=== PATIENT | male | born 1975 | race Caucasian/White ===

== ENCOUNTER 2018-01-09 08:08 | Day surgery (SDC) | payer OTHER ==
[2018-01-09] VITALS (10 sets, daily range): BP systolic 107–129; BP diastolic 68–80
[~2018-01-09] VITALS: Ht 182.9 cm; Wt 95.7 kg
--- NOTE | 2018-01-09 06:57 | Pre-Procedure Note/Attestation ---
Pre-Procedure Note/Attestation Complete Prior to Procedure Planned Procedure: left Procedure Narrative: left hip core decompression with injection of bone marrow aspirate and possible bone graft Indications for Procedure Pre-Operative Diagnosis: left hip avn Attestation I attest that I discussed the nature of the procedure; its benefits; risks and complications; and alternatives (and the risks and benefits of such alternatives ), prior to the procedure, with the patient (or the patient's legal airline security representative). I attest that, if there was a reasonable possibility of needing a blood transfusion, the patient (or the patient's legal airline security representative) was given the [facility] standardized written summary, pursuant to the [place] Blood Safety Act ([place] Health and Safety Code # 1645, as amended). I attest that I re-evaluated the patient just prior to the surgery and that there has been no change in the patient's H&P, except as documented below: none Anthony Zaldivar MD Jan 09, 2018 06:57
[~2018-01-09 08:08] MED LIST: ceFAZolin 1gm in D5W 55ml IVP ONE; celeBREX 200mg Cap **SURGERY PATIENTS ONLY ORAL ONE; oxyCONTIN 20mg tab ORAL ONE; triumeq PO
[2018-01-09] MEDS ORDERED: Zemuron 50mg/5ml Inj IV ONE (08:46)
[2018-01-09] MEDS ORDERED: Lidocaine 1% MPF 10mg/ml 5ml ONE (08:51)
[2018-01-09] MEDS ORDERED: Propofol 200mg/20ml IV ONE (08:51)
[2018-01-09] MEDS ORDERED: Sterile Water Irrig 1000ml IRRIG ONE (09:00)
[2018-01-09] MEDS ORDERED: NS Irrig 1000ml ONE (09:00)
[2018-01-09] MEDS ORDERED: LR 1000ml ONE (09:00)
--- NOTE | 2018-01-09 09:10 | Anethesia Preoperative Eval ---
Anesthesia Pre-op PMH/ROS General Date of Evaluation: Jan 09, 2018 Time of Evaluation: 08:45 Anesthesiologist: ASA Score: ASA 3 Mallampati Score Class I : Soft palate, uvula, fauces, pillars visible Class II: Soft palate, uvula, fauces visible Class III: Soft palate, base of uvula visible Class IV: Only hard plate visible Mallampati Classification: Class II Surgeon: HERIBERTO Diagnosis: ASEPTIC NECROSIS LEFT FEMUR Surgical Procedure: LEFT HIP CORE DECOMPRESSION W/ INJECTION BONE MARROW ASPIRATION Anesthesia History: none Family History: no anesthesia problems Allergies: Coded Allergies: IODINE (Verified Adverse Reaction, Intermediate, vomiting, 01/08/18) Medications: see eMAR Past Medical History Cardiovascular: Denies: HTN, CAD, [place], valve dz, arrhythmia, other Pulmonary: Reports: DICK, other - H/O BRONCHITIS; Denies: asthma, COPD Gastrointestinal/Genitourinary: Denies: GERD, CRI, ESRD, other Neurologic/Psychiatric: Reports: depression/anxiety; Denies: dementia, CVA, TIA, other Endocrine: Denies: DM, hypothyroidism, steroids, other HEENT: Denies: cataract (L), cataract (R), glaucoma, [place] (L), [place] (R), other Hematology/Immune: Reports: other - HIV Musculoskeletal/Integumentary: Reports: other - ASEPTIC NECROSIS LEFT HIP; Denies: OA, RA, DJD, DDD, edema PSxH Narrative: TONSILLECTOMY, APPENDECTOMY Anesthesia Pre-op Phys. Exam Physician Exam Last Vital Signs Date Time Temp Pulse Resp B/P (MAP) Pulse Ox O2 Delivery O2 Flow Rate FiO2 01/09/18 08:50 Room Air 01/09/18 08:49 98.2 61 20 125/76 (92) 98 98.2 Constitutional: NAD Cardiovascular: RRR Respiratory: CTA Gastrointestinal: S/NT/ND Airway Exam Mallampati Score: Class III MO: full ROM: full Teeth: other Anesthesia Pre-op A/P Risk Assessment & Plan Assessment: ASA 3 Plan: ETGA Pre-Antibiotics Drug: ancef 2 grams Given Within 1 Hr of Incision: Yes Time Given: 09:45 Lety Villeda M.D. Jan 09, 2018 09:10
[2018-01-09] MEDS ORDERED: fentaNYL 100 mcg/2 mL IV ONE ×2 (09:11→11:55)
[2018-01-09] MEDS ORDERED: Bupivacaine 0.5% Inj 30 ml vial INJ ONE (09:12)
[2018-01-09] MEDS ORDERED: NeoSporin Gu Irrig 1ml Amp IRRIG ONE (09:13)
[2018-01-09] MEDS ORDERED: Bacitracin 50000 Units Vial ONE (09:13)
[2018-01-09] MEDS ORDERED: Dexamethasone 4mg/ml vial ONE (09:54)
[2018-01-09] MEDS ORDERED: Thrombin 5000 units TOPIC ONE (10:10)
--- NOTE | 2018-01-09 10:13 | Immediate Post-Op Evaluation ---
Immediate Post-Op Evalulation Immediate Post-Op Evalulation Procedure: left hip core decompression and injection of bone marrow aspiration Date of Evaluation: Jan 09, 2018 Time of Evaluation: 11:55 IV Fluids: 1500ml Blood Products: 0 Estimated Blood Loss: 100ml Urinary Output: 0 Blood Pressure Systolic: 110 Blood Pressure Diastolic: 72 Pulse Rate: 51 Respiratory Rate: 19 O2 Sat by Pulse Oximetry: 100 Temperature (Fahrenheit): 97.6 Pain Score (1-10): 0 Nausea: No Vomiting: No Complications none Patient Status: awake, patent, none Hydration Status: adequate Drug: ancef 2 grams Given Within 1 Hr of Incision: Yes Time Given: 09:45 Lety Villeda M.D. Jan 09, 2018 10:13
[2018-01-09] MEDS ORDERED: Thrombin 5000 units spray kit TOPIC ONE (10:42)
[2018-01-09] MEDS ORDERED: Gelfoam Absorbable 1gm powder pkt TOPIC ONE (10:42)
[2018-01-09] MEDS ORDERED: Calcium Chloride 100mg/ml Vial IVP ONE (11:15)
--- NOTE | 2018-01-09 11:48 | Brief Operative Note ---
Immediate Post Operative Note Operative Note Chief Complaint: left hip pain Pre-op Diagnosis: left hip avn Procedure: left hip core decompression with bone marrow aspirate Post-op Diagnosis: same as pre-op Findings: consistent w/pre-op dx studies Surgeon: md gab Administrative Hearing Officer: arian johnson Anesthesiologist: md jayme Anesthesia: general Specimen: none Complications: none Condition: stable Fluids: ns Estimated Blood Loss: minimal Drains: none Implant(s) used?: No Rose Johnson Jan 09, 2018 11:48
[2018-01-09] MEDS ORDERED: Ketorolac 30mg Inj ONE (11:55)
[2018-01-09] MEDS ORDERED: LR 1000ml 1,000 ML IVLG SCH (12:23)
[2018-01-09] MEDS: Hydromorphone 0.5mg/0.5ml inj IVP PRN ×2 (12:27→13:03)
--- NOTE | 2018-01-09 12:27 | 48 Hour Post Anesthesia Eval ---
Post Anesthesia Evaluation Procedure: left hip core decompression and injection of bone marrow aspiration Date of Evaluation: Jan 09, 2018 Time of Evaluation: 12:25 Blood Pressure Systolic: 118 0: 69 Pulse Rate: 68 Respiratory Rate: 20 Temperature (Fahrenheit): 97.6 O2 Sat by Pulse Oximetry: 99 Airway: patent Nausea: No Vomiting: No Pain Intensity: 5 Hydration Status: adequate Mental Status/LOC: patient returned to baseline Post-Anesthesia Complications: none Follow-up care needed: ready to discharge Lety Villeda M.D. Jan 09, 2018 12:27
[2018-01-09] MEDS ORDERED: Labetalol 5mg/ml 20ml vial IV PRN (12:30)
[2018-01-09] MEDS ORDERED: Midazolam 2mg/2ml Inj IVP PRN (12:30)
[2018-01-09] MEDS ORDERED: DiphenhydrAMINE 50mg/ml Inj IVP PRN (12:30)
[2018-01-09] MEDS ORDERED: fentaNYL 100 mcg/2 mL IV PRN (12:30)
--- NOTE | 2018-01-09 15:11 | Diagnostic Imaging Report ---
Indication: Pain Technique: Intraoperative fluoroscopic images from left hip injection. Operating surgeon: Kayley Total fluoroscopy time: 55.5 seconds Total fluoroscopy dose: 22.98 mGy. Comparison: None Findings: 3 intraoperative fluoroscopic images of the left hip were submitted for archival the PACS. There is no appreciable fracture or dislocation. There is reported left hip injection. Impression: Intraoperative fluoroscopic images. Please see operative report.
[2018-01-09] MEDS ORDERED: Norco 5mg/325mg tab ORAL PRN (18:15)
[2018-01-09] MEDS ORDERED: Morphine Sulfate 2mg/ml Inj IVP PRN (18:15)
[2018-01-09] MEDS ORDERED: Tylenol #3 tab (300mg/30mg) ORAL PRN (18:15)
[2018-01-09] MEDS ORDERED: D5 1/2NS 1,000 ML IV SCH (18:15)
--- NOTE | 2018-01-09 23:30 | Operative Note - Dictated ---
DATE OF OPERATION: 01/09/2018 PREOPERATIVE DIAGNOSIS: Left hip avascular necrosis, Ficat stage II. POSTOPERATIVE DIAGNOSIS: Left hip avascular necrosis, Ficat stage II. PROCEDURE: 1. Left hip core decompression with a 6 mm drill with single entry on the lateral cortex of the femur and 3 areas of decompression, a chondral bone anterosuperiorly and the midportion of the femur on AP and midportion on the lateral. 2. 60 mL aspiration of bone marrow aspirate spun down to 7 mL mixed in with 10 mL of demineralized bone graft mixed in and impacted and bone grafted in the area of the decompression SURGEON: Anthony Zaldivar M.D. DIRECTOR OF PSYCHIATRY: Rose Mullins PA-C. ANESTHESIA: General LMA anesthesia. ESTIMATED BLOOD LOSS: Less than 20 mL. COMPLICATIONS: None. BRIEF HISTORY: The patient is a pleasant 42-year-old gentleman who has had ongoing left hip pain. He presented to my office and an MRI confirmed bilateral hip avascular necrosis, but left side was painful. After full discussion of the risks and benefits of the surgery and complications associated with it including infection, bleeding, neurovascular complication, possibility of continued advancement of the hip avascular necrosis, possible collapse down the line and need for total hip arthroplasty and other complications including pain at the area of the bone marrow aspirate and other complications that may arise including infection and neurovascular complication, he opted for surgical treatment as described above. OPERATIVE PROCEDURE: The patient was brought to the operating table and was placed supine, all pressure points were well padded, and the patient was placed on a fracture table. The left hip and left pelvic area was prepped and draped in usual sterile fashion. Then, the area of the ASIS was identified and a small incision was made approximately 2.5 cm proximal to that. The pelvic area was then palpated and the Medial and lateral plates were palpated and a Jamshidi needle was inserted initially with the sharp end for about 1 to 2 cm. Subsequently, the Jamshidi needle was changed from sharp to dull and this was advanced between the 2 endplates by about 3 cm. At this point, the sequential advancement and aspiration of 5 mL of bone marrow aspirate was then performed on the high suction to obtain bone marrow aspirate and mesenchymal cells. Once this was completed, 60 mL of aspirate was obtained. This was passed off in a sterile container and was spun in centrifuge at 3200 rpm for 15 minutes, and the bone marrow mesenchymal layer was then aspirated and total of 7 mL was obtained. The hip joint was then identified. The image intensifier was brought in and on AP and lateral, the position of the hip joint was checked and rechecked. At this point, a small guidewire was placed proximal just inferior to the greater trochanter and was advanced into the neck, into the head in its superior portion on the AP and central portion on the lateral. A 6 mm cord decompression was performed in that area initially all the way down to subchondral bone. Subsequently, the guidewire was then moved into a central position on AP and a central position on lateral, and a 6 mm decompression was performed there in that place. Subsequently, this was moved slightly more inferiorly in a central position on lateral and 6 mm decompression was repeated. This provided excellent decompression of the avascular bone. Hard bone was encountered each time the guidewire was placed into that area. Once this was completed, care was given to the bone marrow aspirate. The bone marrow aspirate was then mixed in with 10 mL of demineralized bone matrix and these were crushed. These were placed in a Jennifer syringe and using a cannula, these were delivered up into the hip into the area of the decompression for bone grafting of the decompression site combined with mesenchymal cell to allow for the best possible healing potential and neovascularization. At this point, all wounds were thoroughly irrigated. The area of the hip aspiration and Jamshidi needle was then removed and was injected with thrombin. There was excellent decompression and there was no hematoma. Wounds were thoroughly irrigated using copious amount of fluid. The wounds were closed using single nylon interrupted suture and a sterile dressing was applied. The patient was extubated was taken to recovery room in stable condition. All lap counts and instrument counts were correct. Anthony Zaldivar M.D. DR: NATHALY JOB#: [id number] CC: [id number]
== END 2018-01-09 14:15 | disposition home or self-care (01) ==
LOC: SDS 08:08 → EDSTATUS 10:45 → SDS 14:15
DX: M87.052 Idiopathic aseptic necrosis of left femur (principal); G47.33 Obstructive sleep apnea (adult) (pediatric); F41.9 Anxiety disorder, unspecified; F32.9 Major depressive disorder, single episode, unspecified; Z88.8 Allergy status to other drugs, medicaments and biological substances
CPT/HCPCS: 20999; 73502; 76001; J0690; J1885; J2250; J2405; J2704; J3010; J3490; J7120; S0028; S2325; 94003; 94150